=== PATIENT | female | born 1940 | race Caucasian/White ===

== ENCOUNTER 2017-01-17 22:26 | Inpatient (IN) | payer OTHER, MEDICAID ==
[~2017-01-17] VITALS: Ht 167.6 cm; Wt 74.8 kg
[2017-01-17] MEDS ORDERED: SODIUM CHLORIDE 0.9% 1,000 ML IV ONE (23:10)
[2017-01-17 23:31] LABS: BASOPHILS % 0.7 % (0.0-2.0); EOSINOPHILS % 1.6 % (0.0-5.0); HEMATOCRIT. 38.2 % (36.0-48.0); HEMOGLOBIN. 12.9 g/dL (12.0-16.0); LYMPHOCYTES % 22.2 % (20.0-50.0); MEAN CORPUSCULAR HEMOGLOBIN 30.1 pg (28.0-32.0); MEAN CORPUSCULAR VOLUME 89.4 fL (81.0-99.0); MEAN PLATELET VOLUME 9.6 fl (7.4-10.4); MONOCYTES % 7.8 % (2.0-8.0); NEUTROPHILS % 67.7 % (40.0-76.0); PLATELET 238 x1000/uL (130-400); RED BLOOD CELL COUNT 4.27 mill/uL (4.2-5.4); RED CELL DISTRIBUTION WIDTH 13.2 % (11.6-14.6)
[2017-01-17 23:44] LABS: CARBON DIOXIDE 25 mEq/L (21-32); CHLORIDE 109 mEq/L (98-107); TROPONIN I < 0.02 ng/mL (0.00-0.04)
[2017-01-17] MEDS ORDERED: PHENYTOIN SODIUM 500 MG in SODIUM CHLORIDE 0.9% 50 ML IV ONE (23:45)
[2017-01-17] MEDS ORDERED: MANNITOL 20% 250 ML IV ONE (23:45)
[2017-01-17] MEDS ORDERED: DEXAMETHASONE 10 MG/ML VIAL IV ONE (23:45)
[2017-01-18] VITALS (30 sets, daily range): BP systolic 110–164; BP diastolic 54–86
[2017-01-18 01:19] LABS: CLARITY URINE CLEAR (CLEAR); COLOR URINE YELLOW (YELLOW); GLUCOSE URINE NEGATIVE (NEGATIVE); KETONES URINE NEGATIVE (NEGATIVE); LEUKOCYTE ESTERASE URINE NEGATIVE (NEGATIVE); NITRITE URINE NEGATIVE (NEGATIVE); OCCULT BLOOD URINE NEGATIVE (NEGATIVE); PROTEIN URINE NEGATIVE (NEGATIVE); SPECIFIC GRAVITY URINE 1.016 (1.005-1.030); UROBILINOGEN URINE 0.2 E.U./dL (0.2-1.0)
[2017-01-18] MEDS ORDERED: ENALAPRIL 2.5MG/2ML VIAL 2ML IV ONE (01:45)
[2017-01-18] MEDS: DEXT 5%/LACTATED RINGERS 1,000 ML IV SCH (04:09)
[2017-01-18] MEDS: PHENYTOIN SODIUM 100MG/2ML VIAL IV SCH ×3 (05:22→21:20)
[2017-01-18] MEDS: DEXAMETHASONE 4MG/ML 1ML VIAL IV SCH ×4 (05:22→23:21)
[2017-01-18 11:42] LABS: PARTIAL THROMBOPLASTIN TIME 25.2 sec (23.4-31.0); PROTHROMBIN TIME 10.3 sec (9.4-11.6)
[2017-01-18] MEDS ORDERED: ACETAMINOPHEN 650MG SUPP PR PRN (13:00)
[2017-01-18] MEDS: NICARDIPINE 100 MG in SODIUM CHLORIDE 0.9% 60 ML IV PRN (16:52)
[2017-01-18] MEDS: ONDANSETRON HCL 4MG/2ML VIAL IV PRN (20:22)
[2017-01-19] VITALS (68 sets, daily range): BP systolic 59–191; BP diastolic 35–106
[2017-01-19] MEDS: DEXT 5%/LACTATED RINGERS 1,000 ML IV SCH ×2 (03:00→10:05)
[2017-01-19] MEDS: PHENYTOIN SODIUM 100MG/2ML VIAL IV SCH ×3 (05:03→21:07)
[2017-01-19] MEDS: DEXAMETHASONE 4MG/ML 1ML VIAL IV SCH ×3 (05:03→21:16)
[2017-01-19] MEDS ORDERED: GELATIN SPONGE,ABSORBABLE SZ 100 ONE (06:12)
[2017-01-19] MEDS ORDERED: LIDOCAINE HCL 1%/EPI 1:200,000 30 ML VIAL ONE (06:12)
[2017-01-19] MEDS ORDERED: POVIDONE-IODINE OINT 28.4GM TOP ONE (06:12)
[2017-01-19 06:13] LABS: BASOPHILS % 0.1 % (0.0-2.0); HEMATOCRIT. 39.5 % (36.0-48.0); HEMOGLOBIN. 13.3 g/dL (12.0-16.0); LYMPHOCYTES % 9.6 % (20.0-50.0); MEAN CORPUSCULAR HEMOGLOBIN 30.7 pg (28.0-32.0); MEAN PLATELET VOLUME 10.3 fl (7.4-10.4); MONOCYTES % 2.1 % (2.0-8.0); NEUTROPHILS % 88.2 % (40.0-76.0); PLATELET 248 x1000/uL (130-400); RED BLOOD CELL COUNT 4.34 mill/uL (4.2-5.4); RED CELL DISTRIBUTION WIDTH 13.6 % (11.6-14.6)
[2017-01-19] MEDS ORDERED: BACITRACIN 50,000 UNITS/VIAL ONE (06:13)
[2017-01-19] MEDS ORDERED: BACITRACIN ZINC 15GM TUBE TOP ONE (06:13)
[2017-01-19] MEDS ORDERED: NORMAL SALINE 0.9% 10 ML SYR ONE (06:13)
[2017-01-19] MEDS ORDERED: THROMBIN (BOVINE) 5000 UNITS/VIAL TOP ONE (06:13)
[2017-01-19 06:32] LABS: CARBON DIOXIDE 26 mEq/L (21-32); CHLORIDE 110 mEq/L (98-107)
[2017-01-19] MEDS ORDERED: FUROSEMIDE 40MG/4ML VIAL ONE (07:49)
[2017-01-19] MEDS ORDERED: POTASSIUM CHLORIDE INJ 40 MEQ in SODIUM CHLORIDE 0.9% 250 ML IV SCH (08:00)
[2017-01-19] MEDS ORDERED: ONDANSETRON HCL 4MG/2ML VIAL IV PRN (08:30)
[2017-01-19] MEDS ORDERED: LABETALOL HCL 20MG/4ML CARPUJECT IV PRN (08:30)
[2017-01-19] MEDS ORDERED: HYDROMORPHONE HCL/PF 2MG/ML CPJ IV PRN (08:30)
[2017-01-19] MEDS ORDERED: MEPERIDINE HCL/PF 25MG/ML CPJ IV PRN (08:30)
[2017-01-19] MEDS ORDERED: GLYCOPYRROLATE 0.2 MG/ML 2ML VIAL ONE (08:41)
[2017-01-19] MEDS ORDERED: CEFAZOLIN SODIUM 1000MG/VIAL ONE (08:41)
[2017-01-19] MEDS ORDERED: ROCURONIUM BROMIDE 10MG/ML VIAL 5ML IV ONE (08:41)
[2017-01-19] MEDS ORDERED: EPHEDRINE SULFATE 50MG/ML VIAL ONE (08:41)
[2017-01-19] MEDS ORDERED: NEOSTIGMINE METHYLSULFATE 1MG/ML 10 ML VIAL ONE (08:41)
[2017-01-19] MEDS ORDERED: HYDRALAZINE 20MG/ML VIAL ONE (08:45)
[2017-01-19] MEDS ORDERED: LABETALOL HCL 5MG/ML VIAL 20ML IV ONE (08:45)
[2017-01-19] MEDS: NICARDIPINE 100 MG in SODIUM CHLORIDE 0.9% 60 ML IV PRN ×2 (09:28→14:38)
[2017-01-19] MEDS: ONDANSETRON HCL 4MG/2ML VIAL IV PRN (09:43)
[2017-01-19] MEDS: MORPHINE SULFATE 2 MG/ML CPJ (NOT FOR IM USE) IV PRN (09:44)
[2017-01-19] MEDS ORDERED: DIPHENHYDRAMINE INJ IV PRN (10:30)
[2017-01-19] MEDS ORDERED: HYDROMORPHONE PCA 10MG/50ML IV PRN (10:30)
[2017-01-19] MEDS ORDERED: ONDANSETRON INJ IV PRN (10:30)
[2017-01-19] MEDS ORDERED: NALOXONE INJ IV PRN (10:30)
[2017-01-19] MEDS: CEFAZOLIN 1000MG PREMIX 50 ML IV SCH ×2 (13:45→21:16)
[2017-01-19] MEDS ORDERED: CEFAZOLIN SODIUM 1000MG/VIAL IV SCH (14:00)
[2017-01-19] MEDS: IPRATROPIUM/ALBUTEROL 0.5-3(2.5)MG/3ML NEB HHN PRN (15:14)
[2017-01-19] MEDS ORDERED: AMLO5TAB88 PO (16:36)
[2017-01-19] MEDS ORDERED: ASPI-1158 PO (18:28)
[2017-01-19] MEDS ORDERED: ATOR40TA70 PO (18:28)
[2017-01-19] MEDS ORDERED: VILA10TA PO (18:28)
[2017-01-19] MEDS ORDERED: MELO-106 PO (18:28)
[2017-01-19] MEDS ORDERED: MECL-109 PO (18:28)
[2017-01-19] MEDS ORDERED: OMEP40CA34 PO (18:28)
[2017-01-19] MEDS ORDERED: NITR100C PO (18:28)
[2017-01-20] VITALS (84 sets, daily range): BP systolic 68–179; BP diastolic 46–83
[2017-01-20] MEDS: PHENYTOIN SODIUM 100MG/2ML VIAL IV SCH ×3 (05:06→22:36)
[2017-01-20] MEDS: CEFAZOLIN 1000MG PREMIX 50 ML IV SCH ×2 (05:08→14:37)
[2017-01-20 06:13] LABS: HEMATOCRIT. 39.7 % (36.0-48.0); HEMOGLOBIN. 13.1 g/dL (12.0-16.0); MEAN CORPUSCULAR HEMOGLOBIN 30.4 pg (28.0-32.0); MEAN CORPUSCULAR VOLUME 92.3 fL (81.0-99.0); MEAN PLATELET VOLUME 10.3 fl (7.4-10.4); PLATELET 252 x1000/uL (130-400); RED CELL DISTRIBUTION WIDTH 13.8 % (11.6-14.6)
[2017-01-20 06:56] LABS: CARBON DIOXIDE 24 mEq/L (21-32); CHLORIDE 111 mEq/L (98-107)
[2017-01-20] MEDS: DEXAMETHASONE 4MG/ML 1ML VIAL IV SCH (09:00)
[2017-01-20 14:21] LABS: PLATELET ESTIMATE NORMAL
[2017-01-20] MEDS: MORPHINE SULFATE 2 MG/ML CPJ (NOT FOR IM USE) IV PRN ×2 (17:13→23:52)
[2017-01-20] MEDS: DEXT 5%/LACTATED RINGERS 1,000 ML IV SCH (22:36)
[2017-01-21] VITALS (54 sets, daily range): BP systolic 88–160; BP diastolic 18–118
[2017-01-21] MEDS: IPRATROPIUM/ALBUTEROL 0.5-3(2.5)MG/3ML NEB HHN PRN (03:00)
[2017-01-21 05:24] LABS: CHLORIDE 109 mEq/L (98-107)
[2017-01-21] MEDS: PHENYTOIN SODIUM 100MG/2ML VIAL IV SCH (05:26)
[2017-01-21 05:31] LABS: CARBON DIOXIDE 24 mEq/L (21-32)
[2017-01-21 05:34] LABS: BASOPHILS % 0.3 % (0.0-2.0); EOSINOPHILS % 0.2 % (0.0-5.0); HEMATOCRIT. 38.5 % (36.0-48.0); HEMOGLOBIN. 13.1 g/dL (12.0-16.0); LYMPHOCYTES % 26.5 % (20.0-50.0); MEAN CORPUSCULAR HEMOGLOBIN 31.2 pg (28.0-32.0); MEAN CORPUSCULAR VOLUME 91.7 fL (81.0-99.0); MONOCYTES % 7.1 % (2.0-8.0); NEUTROPHILS % 65.9 % (40.0-76.0); PLATELET 223 x1000/uL (130-400); RED BLOOD CELL COUNT 4.19 mill/uL (4.2-5.4); RED CELL DISTRIBUTION WIDTH 13.4 % (11.6-14.6)
[2017-01-21] MEDS ORDERED: POTASSIUM CHLORIDE 20MEQ TABLET SR PO SCH (09:15)
[2017-01-21] MEDS ORDERED: NICARDIPINE 100 MG in SODIUM CHLORIDE 0.9% 60 ML IV PRN (10:00)
[2017-01-21] MEDS: PHENYTOIN SODIUM EXTENDED 100MG CAPSULE PO SCH ×2 (13:48→21:12)
[2017-01-21] MEDS ORDERED: LACTULOSE 20G/30ML UDC PO PRN (17:15)
[2017-01-21] MEDS: AMLODIPINE 5MG TABLET PO SCH (17:20)
[2017-01-22 08:00] VITALS: BP 157/68
[2017-01-22] MEDS: AMLODIPINE 5MG TABLET PO SCH (10:03)
[2017-01-22 12:00] VITALS: BP 139/62
[2017-01-22 13:01] LABS: HEMATOCRIT. 40.4 % (36.0-48.0); HEMOGLOBIN. 13.4 g/dL (12.0-16.0); MEAN CORPUSCULAR HEMOGLOBIN 30.3 pg (28.0-32.0); MEAN PLATELET VOLUME 9.5 fl (7.4-10.4); PLATELET 207 x1000/uL (130-400); RED BLOOD CELL COUNT 4.44 mill/uL (4.2-5.4); RED CELL DISTRIBUTION WIDTH 13.5 % (11.6-14.6)
[2017-01-22 13:24] LABS: CARBON DIOXIDE 28 mEq/L (21-32); CHLORIDE 105 mEq/L (98-107)
[2017-01-22 16:00] VITALS: BP 158/65
[2017-01-22 20:00] VITALS: BP 154/65
[2017-01-22] MEDS: PHENYTOIN SODIUM EXTENDED 100MG CAPSULE PO SCH (22:25)
[2017-01-23] VITALS: BP 158/73
[2017-01-23 04:00] VITALS: BP 148/64
[2017-01-23 04:20] LABS: PLATELET ESTIMATE NORMAL
[2017-01-23] MEDS: PHENYTOIN SODIUM EXTENDED 100MG CAPSULE PO SCH ×2 (07:43→15:15)
[2017-01-23 08:00] VITALS: BP 174/65
[2017-01-23] MEDS: AMLODIPINE 5MG TABLET PO SCH (08:29)
[2017-01-23 12:00] VITALS: BP 175/68
[2017-01-23 16:00] VITALS: BP 163/85
[2017-01-23 18:22] VITALS: BP 163/85
== END 2017-01-23 19:30 | disposition home IV services (08) | DRG 25 ==
LOC: ER 22:27 → EDBEDREQ 01-18 00:04 → EDBEDREQSVC 01-18 01:07 → EDBEDREQ 01-18 01:26 → EDBEDREQTM 01-18 01:26 → ENRESERV 01-18 01:44 → MICUSO 01-18 02:30 → 6EST 01-21 23:58
PROVIDERS: ADMIT Internal Medicine; ATTEND Internal Medicine
PROC: 00U207Z Supplement Dura Mater with Autologous Tissue Substitute, Open Approach (ICD-10-PCS; 2017-01-19)
PROC: 009400Z Drainage of Intracranial Subdural Space with Drainage Device, Open Approach (ICD-10-PCS; 2017-01-19)
PROC: 4A103BD Monitoring of Intracranial Pressure, Percutaneous Approach (ICD-10-PCS; 2017-01-19)
PROC: 00C40ZZ Extirpation of Matter from Intracranial Subdural Space, Open Approach (ICD-10-PCS; principal; 2017-01-19 07:00)
DX: S06.5X0A Traumatic subdural hemorrhage without loss of consciousness, initial encounter (principal); G93.40 Encephalopathy, unspecified; I10 Essential (primary) hypertension; W19.XXXA Unspecified fall, initial encounter; Z90.710 Acquired absence of both cervix and uterus; Y93.89 Activity, other specified; Y92.89 Other specified places as the place of occurrence of the external cause; Y99.8 Other external cause status; I16.0 Hypertensive urgency
CPT/HCPCS: 36415; 70450; 70551; 71010; 72170; 80048; 80053; 81003; 84484; 85025; 85610; 85730; 86850; 86900; 88304; 92610; 93005; 94640; 94664; 96361; 96365; 96366; 96367; 96375; 97112; 97116; 97163; 97166; 99291; A4216; C1713; J0171; J0360; J0690; J1100; J1165; J1170; J1200; J1940; J2270; J2405; J2710; J3480; J3490; J7030; J7050; J7060; J7121; J7620; L0172; A4315

== ENCOUNTER 2017-02-05 10:52 | Emergency (ER) | payer OTHER, MEDICAID ==
[~2017-02-05] VITALS: Ht 162.6 cm; Wt 78.0 kg
[~2017-02-05 10:52] MED LIST: AMLO5TAB88 PO; ASPI-1158 PO; ATOR40TA70 PO; MECL-109 PO; MELO-106 PO; NITR100C PO; OMEP40CA34 PO; VILA10TA PO
[2017-02-05 12:35] VITALS: BP 144/76
== END 2017-02-05 12:37 | disposition home or self-care (01) ==
LOC: ER 10:52
DX: Z48.02 Encounter for removal of sutures (principal); I10 Essential (primary) hypertension; Z79.82 Long term (current) use of aspirin; Z98.890 Other specified postprocedural states
CPT/HCPCS: 99281